=== PATIENT | female | born 1960 ===

== ENCOUNTER 2022-03-03 10:06 | Inpatient (IN) ==
[~2022-03-03 10:06] MED LIST: Buffered Lidocaine 1% SYRIN 1 ml INTRADERM ONE; DiMENhydriNATE IV 50 mg/ml 1 ml VIAL IV PUSH ONE; HYDROcodone/ACETAMIN 5/325 mg TAB PO PRN; Lactated Ringers 1000 ml BAG 1,000 ML IV SCH; Metoclopramide 5 MG/ML VIAL (10 mg) IV PRN; Naloxone 0.4 mg VIAL 0.4 mg/ml 1 ml VIAL IV PRN; Ondansetron 4 mg VIAL 2 MG/ML 2 ml VIAL IV PRN; fentaNYL 100 mcg/2 ml 50 MCG/ML VIAL IV PRN
[2022-03-03] MEDS ORDERED: fentaNYL 100 mcg/2 ml 50 MCG/ML VIAL ONE (11:17)
[2022-03-03] MEDS ORDERED: Midazolam 2 mg/2 ml VIAL 1 mg/ml 2 ml VIAL (2 mg) ONE ×2 (11:17→14:01)
[2022-03-03] MEDS ORDERED: ROPIVACAINE 5 MG/ML 30 ML BTL (0.5%) ONE ×2 (11:18→15:14)
[2022-03-03] MEDS ORDERED: ceFAZolin 2 GM PREMIX 2 GM/50 ML BAG ONE (11:45)
[2022-03-03] MEDS ORDERED: DiMENhydriNATE IV 50 mg/ml 1 ml VIAL ONE (11:45)
[2022-03-03] MEDS ORDERED: Ondansetron 4 mg VIAL 2 MG/ML 2 ml VIAL IV ONE (13:35)
[2022-03-03] MEDS ORDERED: Ondansetron 4 mg VIAL 2 MG/ML 2 ml VIAL ONE ×3 (13:35→18:24)
[2022-03-03] MEDS ORDERED: Lidocaine 2% PF 5 ML VIAL ONE (14:00)
[2022-03-03] MEDS ORDERED: Propofol 10 MG/ML 20 ML BTL ONE (14:00)
[2022-03-03] MEDS ORDERED: fentaNYL 250 mcg/5 ml 50 MCG/ML 5 ml VIAL (250 MCG) ONE (14:01)
[2022-03-03] MEDS ORDERED: Lactulose 30 ml UDC PO PRN (14:13)
[2022-03-03] MEDS ORDERED: Magnesium Hydroxide LIQ 30 ML UDC PO PRN (14:13)
[2022-03-03] MEDS ORDERED: Ondansetron ODT 4 mg TAB 4 MG TAB PO PRN (14:13)
[2022-03-03] MEDS ORDERED: diPHENhydraMINE 25 mg TAB PO PRN (14:13)
[2022-03-03] MEDS ORDERED: diPHENhydraMINE IV 50 MG/ML 1 ml VIAL (BENADRYL) IV PRN (14:13)
[2022-03-03] MEDS ORDERED: HYDROmorphone 0.5 MG/0.5 ML SYRINGE ONE (14:48)
[2022-03-03] MEDS ORDERED: Dexamethasone IV 4 MG/ML VIAL 1 ml VIAL ONE (14:55)
[2022-03-03] MEDS ORDERED: ceFAZolin 1 GM ADVAN 1 GM in NS 0.9% 50 ML 50 ML IVPB SCH (15:00)
[2022-03-03] MEDS ORDERED: Phenylephrine 40 mcg/mL 10mL (400mcg) SYRINGE ONE (15:48)
[2022-03-03] MEDS ORDERED: QUETIAPINE 150 MG PO SCH (18:30)
[2022-03-03] MEDS: Lactated Ringers 1000 ml BAG 1,000 ML IV SCH (18:40)
[2022-03-03] MEDS: Ondansetron 4 mg VIAL 2 MG/ML 2 ml VIAL IV PRN (18:40)
[2022-03-03] MEDS ORDERED: Calcium (OSCAL) 500 mg TAB PO SCH (21:00)
[2022-03-03] MEDS: Magnesium Hydroxide LIQ 30 ML UDC PO SCH (22:00)
[2022-03-03] MEDS: Lithium Carbonate ER 450mg TAB PO SCH (22:18)
[2022-03-03] MEDS: ceFAZolin VIAL 1 GM in NS 0.9% 50 ML 50 ML IVPB SCH (22:19)
[2022-03-04] MEDS: Ondansetron 4 mg VIAL 2 MG/ML 2 ml VIAL IV PRN ×2 (00:53→10:55)
[2022-03-04] MEDS: Lactated Ringers 1000 ml BAG 1,000 ML IV SCH (04:45)
[2022-03-04] MEDS: Magnesium Hydroxide LIQ 30 ML UDC PO SCH ×2 (05:16→08:19)
[2022-03-04 05:37] LABS: Hematocrit 38 % (35-47); Hemoglobin 12.9 g/dL (12.0-16.0); Mean Platelet Volume 8.5 fL (7.4-10.4); Platelet Count 182 10^3/uL (150-450)
[2022-03-04 05:59] LABS: Calcium 9.1 mg/dL (8.6-10.3); Potassium 4.4 mmol/L (3.5-5.0); eGFR CKD-EPI 80.3 (>60)
[2022-03-04] MEDS: ceFAZolin VIAL 1 GM in NS 0.9% 50 ML 50 ML IVPB SCH ×2 (06:08→13:29)
[2022-03-04] MEDS ORDERED: PTO: Linaclotide 290 mcg CAP (NF) PO SCH (07:30)
[2022-03-04] MEDS: Lithium Carbonate ER 450mg TAB PO SCH (08:13)
[2022-03-04] MEDS ORDERED: ANASTROZOLE 1 MG PO SCH (09:00)
[2022-03-04] MEDS ORDERED: Vitamin THERAPEUTIC TAB PO SCH (09:00)
[2022-03-04] MEDS ORDERED: Fluticasone NASAL SPRAY 50MCG 16 gm SPRAY BTL INTRANASAL SCH (09:00)
[2022-03-04 11:38] VITALS: BP 103/59
[2022-03-04] MEDS ORDERED: QUETIAPINE 150 MG PO SCH (18:30)
== END 2022-03-04 15:30 | disposition home or self-care (01) | DRG 302 ==
LOC: INTOOBSV 10:06 → AA 10:06 → OBSVTOIN 14:13 → SSU 18:21
PROVIDERS: ADMIT Orthopaedic Surgery Adult Reconstructive Orthopaedic Surgery; ATTEND Orthopaedic Surgery Adult Reconstructive Orthopaedic Surgery